=== PATIENT | male | born 1955 | race Caucasian/White ===

== ENCOUNTER 2018-04-06 18:05 | Emergency (ER) | payer OTHER ==
[~2018-04-06] VITALS: Ht 162.6 cm; Wt 59.4 kg
[2018-04-06 18:11] VITALS: Ht 162.6 cm; Wt 59.4 kg
[2018-04-06 20:40] LABS: CALCIUM 8.7 mg/dL (8.5-10.1); CARBON DIOXIDE 30.9 mmol/L (21-32); CHLORIDE SERUM 104 mmol/L (98-107); CREATININE SERUM 0.7 mg/dL (0.7-1.3); GFR1 > 60 mL/min; GLUCOSE SERUM 96 mg/dL (74-106); POTASSIUM SERUM 3.2 mmol/L (3.5-5.1); SODIUM SERUM 141 mmol/L (136-145)
[2018-04-06 20:45] LABS: ALKALINE PHOSPHATASE 98 U/L (46-116); ALT/SGPT 44 U/L (16-63); AST/SGOT 30 U/L (15-37); BILIRUBIN TOTAL 0.4 mg/dL (0.20-1.00); TOTAL PROTEIN, SERUM 8.1 g/dL (6.4-8.2)
[2018-04-06 20:46] LABS: ALBUMIN 3.3 g/dL (3.4-5.0)
[2018-04-06 21:12] LABS: BASOPHIL % 0.1 % (0-2); PLATELET COUNT 265 x10^3mcL (130-400)
[2018-04-06 21:26] VITALS: BP 144/81
== END 2018-04-06 22:12 | disposition home or self-care (01) ==
LOC: ED 18:05
PROVIDERS: Emergency Medicine
DX: R07.89 Other chest pain (principal); R11.0 Nausea; R06.02 Shortness of breath; Z85.01 Personal history of malignant neoplasm of esophagus; Z90.49 Acquired absence of other specified parts of digestive tract; Z90.89 Acquired absence of other organs; Z98.890 Other specified postprocedural states
CPT/HCPCS: 83880; 85378; J2270; J7613; J7644; Q0092

== ENCOUNTER 2018-04-10 18:53 | Emergency (ER) | payer OTHER ==
[~2018-04-10] VITALS: Ht 162.6 cm; Wt 60.3 kg
[2018-04-10 19:01] VITALS: Ht 162.6 cm; Wt 60.3 kg
[2018-04-10 19:43] LABS: BASOPHIL % 0.2 % (0-2); PLATELET COUNT 317 x10^3mcL (130-400)
[2018-04-10 19:59] LABS: CALCIUM 9.4 mg/dL (8.5-10.1); CHLORIDE SERUM 102 mmol/L (98-107); CREATININE SERUM 0.8 mg/dL (0.7-1.3); GFR1 > 60 mL/min; GLUCOSE SERUM 154 mg/dL (74-106); POTASSIUM SERUM 3.2 mmol/L (3.5-5.1); SODIUM SERUM 140 mmol/L (136-145)
[2018-04-10 20:04] LABS: ALBUMIN 3.8 g/dL (3.4-5.0); ALKALINE PHOSPHATASE 108 U/L (46-116); ALT/SGPT 51 U/L (16-63); AST/SGOT 31 U/L (15-37); BILIRUBIN TOTAL 0.5 mg/dL (0.20-1.00); HDL CHOLESTEROL 53 mg/dL (40-60); LIPASE 111 IU/L (73-393); MAGNESIUM 1.8 mg/dL (1.8-2.4); TRIGLYCERIDES 130 mg/dL (<150)
[2018-04-10 20:11] LABS: T3 TOTAL 1.12 ng/mL
[2018-04-10 20:13] LABS: CHOLESTEROL 102 mg/dL (<200); CHOLESTEROL/HDL RATIO 1.9; TOTAL PROTEIN, SERUM 8.9 g/dL (6.4-8.2)
[2018-04-10 20:39] LABS: FREE T4 1.1 ng/dL (0.76-1.46); T4(THYROXINE) 8.9 ug/dL (4.7-13.3)
[2018-04-10 23:42] LABS: microscopic required? NO
[2018-04-10 23:49] LABS: UA SPECIFIC GRAVITY >=1.030 (1.005-1.035); urine erythrocyte NEGATIVE (NEGATIVE)
[2018-04-11 00:39] VITALS: BP 152/85
== END 2018-04-11 00:39 | disposition home or self-care (01) ==
LOC: ED 18:53
PROVIDERS: Specialist
DX: E87.6 Hypokalemia (principal); I10 Essential (primary) hypertension; E11.9 Type 2 diabetes mellitus without complications; E78.00 Pure hypercholesterolemia, unspecified; F41.9 Anxiety disorder, unspecified; Z85.01 Personal history of malignant neoplasm of esophagus; Z98.890 Other specified postprocedural states
CPT/HCPCS: 83880; 84439; J3480; Q0092

== ENCOUNTER 2018-08-10 21:16 | Inpatient (IN) | payer OTHER ==
[~2018-08-10] VITALS: Ht 162.6 cm; Wt 60.5 kg
[2018-08-10 21:19] VITALS: Ht 162.6 cm; Wt 60.5 kg
--- NOTE | 2018-08-10 21:50 | NUR ---
PT PRESENTS TO ER TODAY WITH C/O OF CP THAT STARTED TODAY. PT STATES THAT CP IS RIGHT OVER HIS HEART AND FEELS SHARP. PT ALSO REPORTING DIZZINESS AND SOB. PTS LUNG SOUNDS ARE CLEAR BILATERALLY ON AUSCULTATION OF ALL LOBES. PT REPORTS TAKING NITRO APPROX 30MINS BUSINESS PROCESS ANALYST WITH NO RELIEF OF SYMPTOMS. PT DENIES PAIN RADIATING OR ANYTHING MAKING IT BETTER OR WORSE. PT PLACE ON FULL RAIL SIGNAL WORKER. PT IS A/O X4. RESP ARE EQUAL AND UNLABORED. NO ACUTE DISTRESS NOTED.
--- NOTE | 2018-08-10 22:36 | NUR ---
3 ATTEMPTS BY MYSELF TO START IV AND 2 ATTEMPTS BY CRISTOFER CHACON TO START IV WITHOUT SUCCESS.
[2018-08-10 22:46] LABS: BASOPHIL % 0.1 % (0-2); PLATELET COUNT 248 x10^3mcL (130-400)
[2018-08-10] MEDS ORDERED: TAMSULOSIN HYD0.4 M1 PO ×2 (22:55→22:57)
[2018-08-10] MEDS ORDERED: LOR PO (22:55)
[2018-08-10] MEDS ORDERED: AMITRIPTYLINE H25 MG PO (22:56)
[2018-08-10] MEDS ORDERED: ENALAPRIL MALEA20 MG PO (22:57)
[2018-08-10 22:58] LABS: RED CELL DISTRIBUTION WIDTH 14.6 % (11.5-14.5)
[2018-08-10] MEDS ORDERED: SIMVASTATIN40 M1 PO (22:58)
[2018-08-10] MEDS ORDERED: GAS RELIEF 8080 MG PO (22:58)
[2018-08-10] MEDS ORDERED: POTASSIUM CHLO10 MEQ PO (22:58)
[2018-08-10] MEDS ORDERED: ASPIR 8181 MG PO (22:59)
[2018-08-10] MEDS ORDERED: CLARITIN10 MG PO (22:59)
[2018-08-10] MEDS ORDERED: METOCLOPRAMIDE10 M4 PO (22:59)
[2018-08-10] MEDS ORDERED: WELLBUTRIN XL300 M1 PO (23:00)
[2018-08-10] MEDS ORDERED: METFORMIN HYDR500 M1 PO (23:00)
[2018-08-10 23:16] LABS: ALBUMIN 3.9 g/dL (3.4-5.0); ALKALINE PHOSPHATASE 114 U/L (46-116); ALT/SGPT 46 U/L (16-63); AST/SGOT 37 U/L (15-37); BILIRUBIN TOTAL 0.4 mg/dL (0.20-1.00); CALCIUM 9.5 mg/dL (8.5-10.1); CARBON DIOXIDE 28.9 mmol/L (21-32); CHLORIDE SERUM 103 mmol/L (98-107); CREATININE SERUM 0.9 mg/dL (0.7-1.3); GFR1 > 60 mL/min; GLUCOSE SERUM 149 mg/dL (74-106); SODIUM SERUM 141 mmol/L (136-145)
[2018-08-10 23:17] LABS: TOTAL PROTEIN, SERUM 8.8 g/dL (6.4-8.2)
--- NOTE | 2018-08-10 23:30 | NUR ---
3 ATTEMPT BY MARQUIS CLEVELAND TO GET IV ACCESS WITHOUT SUCCESS.
--- NOTE | 2018-08-10 23:34 | NUR ---
RESIDENT NESSA AND MD MARIE AT BEDSIDE TO ATTEMPT EJ START. PT TOLERATING PROCEDURE WELL. PTS VITALS WNL. NO ACUTE DISTRESS NOTED.
[2018-08-11] VITALS (7 sets, daily range): BP systolic 137–164; BP diastolic 84–93
--- NOTE | 2018-08-11 00:41 | NUR ---
REPORT GIVEN TO JUANCARLOS C[place]AND TO ASSUME CARE OF PT.
--- NOTE | 2018-08-11 00:51 | NUR ---
RECEIVED PT FROM ED. PT AOX4. DENIES WOMACK/DIZZINESS. SPEECH CLEAR, ANSWERS QUESTIONS APPROP. TELE #13, NSR, HR 99. DENIES CP/PRESSURE. PULSES PALPABLE, NO EDEMA NOTED. LUNG SOUNDS DIMINISHED, ON RA. SOB UPON EXERTION. BOWEL SOUNDS ACTIVE. VOIDS FREELY. GEN WEAKNESS. AMBULATORY. SKIN INTACT. IV TO R. EJ, INTACT AND PATENT. BED IN LOWEST POSITION. CALL LIGHT WITHIN REACH. WILL CONTINUE TO MONITOR.
[2018-08-11 01:16] LABS: PHOSPHOROUS 4.1 mg/dL (2.5-4.9)
--- NOTE | 2018-08-11 02:34 | NUR ---
TELE BOX CHANGED TO TELE #22, READING NSR, HR 89.
--- NOTE | 2018-08-11 03:45 | NUR ---
[place] PROVIDED TO PT PER HIS REQUEST.
[2018-08-11 06:09] LABS: microscopic required? NO
--- NOTE | 2018-08-11 07:30 | NUR ---
RECEIVED PATIENT RESTING IN BED. PATIENT DENIES CHEST PAIN. TELE MONITOR IN PLACE. DENIES SOB, LUNG SOUNDS CTA. IV TO RIGHT EJ CDI, NO REDNESS, SWELLING OR PAIN NOTED. INSTRUCTED PATIENT TO CALL FOR ASSISTANCE IF ANY CHEST PAIN, DIZZINESS OR HEADACHE OCCURS. CALL LIGHT WITHIN REACH, BED IN LOW POSITION, SIDE RAILS X2 FOR SAFETY PRECAUTION . WILL CONTINUE TO MONITOR FOR CHANGES.
[2018-08-11 07:31] LABS: BASOPHIL % 0.3 % (0-2); PLATELET COUNT 210 x10^3mcL (130-400)
[2018-08-11 07:51] LABS: UA SPECIFIC GRAVITY >=1.030 (1.005-1.035); urine erythrocyte NEGATIVE (NEGATIVE)
[2018-08-11 08:26] LABS: CALCIUM 8.9 mg/dL (8.5-10.1); CARBON DIOXIDE 22.5 mmol/L (21-32); CHLORIDE SERUM 104 mmol/L (98-107); CREATININE SERUM 0.7 mg/dL (0.7-1.3); GFR1 > 60 mL/min; GLUCOSE SERUM 164 mg/dL (74-106); HDL CHOLESTEROL 50 mg/dL (40-60); POTASSIUM SERUM 3.3 mmol/L (3.5-5.1); SODIUM SERUM 142 mmol/L (136-145); TRIGLYCERIDES 144 mg/dL (<150)
[2018-08-11 09:09] LABS: CHOLESTEROL 105 mg/dL (<200); CHOLESTEROL/HDL RATIO 2.1
--- NOTE | 2018-08-11 09:55 | NUR ---
DR DAWN AWARE PATIENT K IS 3.3, PREVIOUS K WAS 4.0. DR BLOCK AWARE PATIENT C/O INTERMITENT CHEST PAIN. DR. DAWN WILL ORDER EKG AND ORDER A REPLACEMENT FOR POTASSIUM. WILL CARRY OUT ORDERS AND CONTINUE TO MONITOR PATIENT.
[2018-08-11 09:56] LABS: AMPHETAMINE QUAL UR NONE DETECTED (See below)
--- NOTE | 2018-08-11 13:00 | NUR ---
PATIENT IS SITTING UP AT BEDSIDE EATING, PATIENT DENIES CHEST PAIN AT THIS. NO SOB NOTED, PATIENT ON ROOM AIR. CALL LIGHT WITHIN REACH, BED IN LOW POSITION. WILL CONTINUE TO MONITOR.
--- NOTE | 2018-08-11 18:22 | NUR ---
PATIENT WAS D/C HOME. PATIENT WAS TAKEN DOWN VIA WHEELCHAIR, AND SULPHATE TESTER AT SIDE FOR SAFETY PRECAUTION. NO ACUTE CHANGES THROUGH OUT SHIFT, PATIENT IS STABLE AT THIS TIME. PATIENT RECEIVED COPY OF D/C INSTRUCTIONS. PATIENT UNDERSTANDS AND AGREES WITH DISCHARGE PLAN AND INSTRUCTIONS INCLUDING FOLLOW MEDICATIONS. PATIENT TOOK ALL PERSONAL BELONGING HOME. PATIENT IV TO RIGHT EF REMOVED CATH INTACT, TELE MONITOR AND ARMBANDS REMOVED. ALL QUESTIONS AND CONCERNS ADDRESSED.
== END 2018-08-11 18:22 | disposition home or self-care (01) | DRG 243 ==
LOC: ED 21:16 → DU 08-11 00:08
PROVIDERS: Emergency Medicine; ADMIT Internal Medicine
DX: K21.9 Gastro-esophageal reflux disease without esophagitis (principal); E11.9 Type 2 diabetes mellitus without complications; E78.5 Hyperlipidemia, unspecified; I10 Essential (primary) hypertension; F41.9 Anxiety disorder, unspecified; E78.00 Pure hypercholesterolemia, unspecified; F32.9 Major depressive disorder, single episode, unspecified; N40.0 Benign prostatic hyperplasia without lower urinary tract symptoms; Z87.891 Personal history of nicotine dependence; Z79.84 Long term (current) use of oral hypoglycemic drugs; Z85.01 Personal history of malignant neoplasm of esophagus; Z83.3 Family history of diabetes mellitus; Z82.49 Family history of ischemic heart disease and other diseases of the circulatory system; Z82.3 Family history of stroke
CPT/HCPCS: 82962; 83880; J8597; Q0092

== ENCOUNTER 2018-12-22 13:15 | Emergency (ER) | payer OTHER ==
[~2018-12-22] VITALS: Ht 162.6 cm; Wt 56.7 kg
[~2018-12-22 13:15] MED LIST: AMITRIPTYLINE H25 MG PO; ASPIR 8181 MG PO; CLARITIN10 MG PO; ENALAPRIL MALEA20 MG PO; GAS RELIEF 8080 MG PO; LOR PO; METFORMIN HYDR500 M1 PO; METOCLOPRAMIDE10 M4 PO; POTASSIUM CHLO10 MEQ PO; SIMVASTATIN40 M1 PO; TAMSULOSIN HYD0.4 M1 PO; WELLBUTRIN XL300 M1 PO
[2018-12-22 13:31] VITALS: Ht 162.6 cm; Wt 56.7 kg
[2018-12-22 16:36] LABS: CALCIUM 9.3 mg/dL (8.5-10.1); CARBON DIOXIDE 29.7 mmol/L (21-32); CHLORIDE SERUM 102 mmol/L (98-107); CREATININE SERUM 0.8 mg/dL (0.7-1.3); GFR1 > 60 mL/min; GLUCOSE SERUM 119 mg/dL (74-106); POTASSIUM SERUM 3.4 mmol/L (3.5-5.1); SODIUM SERUM 136 mmol/L (136-145)
[2018-12-22 16:41] LABS: ALBUMIN 3.4 g/dL (3.4-5.0); ALKALINE PHOSPHATASE 104 U/L (46-116); ALT/SGPT 29 U/L (16-63); AST/SGOT 13 U/L (15-37); BILIRUBIN TOTAL 0.56 mg/dL (0.20-1.00); TOTAL PROTEIN, SERUM 8.1 g/dL (6.4-8.2)
[2018-12-22 17:13] LABS: PLATELET COUNT 250 x10^3mcL (130-400)
[2018-12-22 17:15] LABS: BASOPHIL % 0 % (0-2)
[2018-12-22 17:57] VITALS: BP 139/75
== END 2018-12-22 18:10 | disposition home or self-care (01) ==
LOC: ED 13:15
PROVIDERS: Emergency Medicine
DX: J40 Bronchitis, not specified as acute or chronic (principal); J04.0 Acute laryngitis; I10 Essential (primary) hypertension; E11.9 Type 2 diabetes mellitus without complications; E78.00 Pure hypercholesterolemia, unspecified; F41.9 Anxiety disorder, unspecified; Z98.890 Other specified postprocedural states; Z85.01 Personal history of malignant neoplasm of esophagus
CPT/HCPCS: J7030; Q0092

== ENCOUNTER 2018-12-26 07:32 | Emergency (ER) | payer OTHER ==
[~2018-12-26] VITALS: Ht 162.6 cm; Wt 55.3 kg
[2018-12-26 07:40] VITALS: Ht 162.6 cm; Wt 55.3 kg
[2018-12-26 09:15] LABS: BASOPHIL % 0.2 % (0-2); PLATELET COUNT 293 x10^3mcL (130-400); RED CELL DISTRIBUTION WIDTH 14.3 % (11.5-14.5)
[2018-12-26 09:44] LABS: microscopic required? NO
[2018-12-26 10:07] LABS: CALCIUM 9.7 mg/dL (8.5-10.1); CARBON DIOXIDE 28.8 mmol/L (21-32); CHLORIDE SERUM 102 mmol/L (98-107); CREATININE SERUM 0.7 mg/dL (0.7-1.3); GFR1 > 60 mL/min; GLUCOSE SERUM 144 mg/dL (74-106); POTASSIUM SERUM 3.1 mmol/L (3.5-5.1); SODIUM SERUM 143 mmol/L (136-145)
[2018-12-26 10:11] LABS: ALBUMIN 3.6 g/dL (3.4-5.0); ALKALINE PHOSPHATASE 110 U/L (46-116); ALT/SGPT 43 U/L (16-63); AST/SGOT 31 U/L (15-37); BILIRUBIN TOTAL 0.5 mg/dL (0.20-1.00)
[2018-12-26 10:12] LABS: TOTAL PROTEIN, SERUM 8.4 g/dL (6.4-8.2)
[2018-12-26 10:14] LABS: UA SPECIFIC GRAVITY 1.025 (1.005-1.035); urine erythrocyte NEGATIVE (NEGATIVE)
[2018-12-26 15:42] LABS: microscopic required? YES; urine erythrocyte 2+ (NEGATIVE)
[2018-12-26 15:54] VITALS: BP 157/90
== END 2018-12-26 15:54 | disposition home or self-care (01) ==
LOC: ED 07:32
PROVIDERS: Emergency Medicine
DX: R42 Dizziness and giddiness (principal); T43.3X5A Adverse effect of phenothiazine antipsychotics and neuroleptics, initial encounter; E87.6 Hypokalemia; E83.42 Hypomagnesemia; R33.9 Retention of urine, unspecified; I10 Essential (primary) hypertension; E11.9 Type 2 diabetes mellitus without complications; E78.00 Pure hypercholesterolemia, unspecified; F41.9 Anxiety disorder, unspecified; Z85.01 Personal history of malignant neoplasm of esophagus; Y92.89 Other specified places as the place of occurrence of the external cause
CPT/HCPCS: 83880; J3475; J7030; Q0092

== ENCOUNTER 2018-12-27 17:42 | Emergency (ER) | payer OTHER ==
[~2018-12-27] VITALS: Ht 162.6 cm; Wt 55.0 kg
[2018-12-27 17:44] VITALS: BP 153/93; Ht 162.6 cm; Wt 55.0 kg
== END 2018-12-27 18:37 | disposition home or self-care (01) ==
LOC: ED 17:42
DX: Z46.6 Encounter for fitting and adjustment of urinary device (principal); I10 Essential (primary) hypertension; E11.9 Type 2 diabetes mellitus without complications; E78.00 Pure hypercholesterolemia, unspecified; F41.9 Anxiety disorder, unspecified; Z88.8 Allergy status to other drugs, medicaments and biological substances

== ENCOUNTER 2019-04-09 21:28 | Emergency (ER) | payer OTHER ==
[~2019-04-09] VITALS: Ht 162.6 cm; Wt 59.0 kg
[2019-04-09 21:43] VITALS: Ht 162.6 cm; Wt 59.0 kg
[2019-04-09 23:34] VITALS: BP 143/88
== END 2019-04-09 23:34 | disposition home or self-care (01) ==
LOC: ED 21:28
DX: R33.9 Retention of urine, unspecified (principal); R10.30 Lower abdominal pain, unspecified; I10 Essential (primary) hypertension; E11.9 Type 2 diabetes mellitus without complications; E78.00 Pure hypercholesterolemia, unspecified; F41.9 Anxiety disorder, unspecified; Z85.01 Personal history of malignant neoplasm of esophagus; Z88.8 Allergy status to other drugs, medicaments and biological substances

== ENCOUNTER 2019-04-11 16:22 | Emergency (ER) | payer OTHER ==
[~2019-04-11] VITALS: Ht 165.1 cm; Wt 58.1 kg
[2019-04-11 16:49] VITALS: Ht 165.1 cm; Wt 58.1 kg
[2019-04-11 18:07] LABS: BASOPHIL % 0.2 % (0-2); PLATELET COUNT 227 x10^3mcL (130-400)
[2019-04-11 18:10] LABS: RED CELL DISTRIBUTION WIDTH 14.7 % (11.5-14.5)
[2019-04-11 18:14] LABS: CALCIUM 8.2 mg/dL (8.5-10.1); CARBON DIOXIDE 28.7 mmol/L (21-32); CHLORIDE SERUM 103 mmol/L (98-107); CREATININE SERUM 0.8 mg/dL (0.7-1.3); GFR1 > 60 mL/min; GLUCOSE SERUM 139 mg/dL (74-106); POTASSIUM SERUM 3.5 mmol/L (3.5-5.1); SODIUM SERUM 140 mmol/L (136-145)
[2019-04-11 18:27] LABS: ALKALINE PHOSPHATASE 108 U/L (46-116); ALT/SGPT 21 U/L (16-63); AST/SGOT 25 U/L (15-37); BILIRUBIN TOTAL 0.3 mg/dL (0.20-1.00); LIPASE 84 IU/L (73-393); T4(THYROXINE) 9.6 ug/dL (4.7-13.3); TOTAL PROTEIN, SERUM 7.6 g/dL (6.4-8.2)
[2019-04-11 18:32] LABS: ALBUMIN 3.2 g/dL (3.4-5.0); CHOLESTEROL 127 mg/dL (<200)
[2019-04-11 19:18] LABS: UA SPECIFIC GRAVITY >=1.030 (1.005-1.035); microscopic required? YES; urine erythrocyte 3+ (NEGATIVE)
[2019-04-11 20:11] VITALS: BP 134/75
== END 2019-04-11 20:11 | disposition home or self-care (01) ==
LOC: ED 16:22
PROVIDERS: Emergency Medicine
DX: N39.0 Urinary tract infection, site not specified (principal); I10 Essential (primary) hypertension; E11.9 Type 2 diabetes mellitus without complications; E78.00 Pure hypercholesterolemia, unspecified; F41.9 Anxiety disorder, unspecified; Z88.8 Allergy status to other drugs, medicaments and biological substances
CPT/HCPCS: 82962; J1956; J7030

== ENCOUNTER 2019-05-03 19:20 | Inpatient (IN) | payer OTHER ==
[~2019-05-03] VITALS: Ht 162.6 cm; Wt 58.5 kg
--- NOTE | 2019-05-03 19:30 | NUR ---
PT BIB AMBULANCE FOR GENERALIZED WEAKNESS AND "8 FALLS" X 2 DAYS. PT DENIED ANY HEAD INJURY OR LOC. NO NEURO DEFICITS NOTED. PT A&0X4, SPEAKING FULL CLEAR SENTENCES. PT BREATHING EVEN AND UNLABORED. PT SKIN INTACT. PT STATES "CHILLS" BUT DENIES FEVER AT HOME. PT STATES GENERALIZED ABDOMINAL PAIN AND BILATERAL RIB PAIN S/P "FALLS". CM AND [address] AWAITING MSE. WILL CONTINUE TO MONITOR.
--- NOTE | 2019-05-03 19:42 | NUR ---
PT AT BEDSIDE.
[2019-05-03 20:05] LABS: BASOPHIL % 0 % (0-2); PLATELET COUNT 269 x10^3mcL (130-400); RED CELL DISTRIBUTION WIDTH 14.1 % (11.5-14.5)
[2019-05-03 20:10] LABS: CALCIUM 8.5 mg/dL (8.5-10.1); CARBON DIOXIDE 30.1 mmol/L (21-32); CHLORIDE SERUM 99 mmol/L (98-107); CREATININE SERUM 0.7 mg/dL (0.7-1.3); GFR1 > 60 mL/min; GLUCOSE SERUM 101 mg/dL (74-106); POTASSIUM SERUM 3.2 mmol/L (3.5-5.1); SODIUM SERUM 139 mmol/L (136-145)
[2019-05-03 20:20] LABS: ALBUMIN 2.9 g/dL (3.4-5.0); ALKALINE PHOSPHATASE 117 U/L (46-116); ALT/SGPT 24 U/L (16-63); AST/SGOT 25 U/L (15-37); BILIRUBIN TOTAL 0.4 mg/dL (0.20-1.00); TOTAL PROTEIN, SERUM 8.3 g/dL (6.4-8.2)
[2019-05-03 20:23] LABS: FREE T4 1.31 ng/dL (0.76-1.46); FREE THYROXINE INDEX 3.1 ug/dL (1.4-4.5); T4(THYROXINE) 8.5 ug/dL (4.7-13.3)
--- NOTE | 2019-05-03 20:32 | NUR ---
MARCELO RN AT BEDSIDE FOR IV ATTEMPT
--- NOTE | 2019-05-03 20:32 | NUR ---
MULTIPLE UNSUCCESSFUL IV ATTEMPTS BY MYSELF
[2019-05-03 21:03] LABS: T3 TOTAL 0.82 ng/mL
[2019-05-03 21:13] LABS: ERYTHROCYTE SED RATE 92 mm/hr (0-20)
[2019-05-03 21:26] LABS: UA SPECIFIC GRAVITY 1.015 (1.005-1.035); microscopic required? YES; urine erythrocyte 2+ (NEGATIVE)
[2019-05-03] MEDS ORDERED: TRAZODONE100 MG PO (22:20)
[2019-05-03] MEDS ORDERED: AMITRIPTYLINE H50 MG PO (22:20)
[2019-05-03] MEDS ORDERED: LOR PO (22:20)
[2019-05-03] MEDS ORDERED: LORAZEPAM2 MG PO (22:20)
[2019-05-03] MEDS ORDERED: ENALAPRIL20 M1 PO (22:21)
[2019-05-03] MEDS ORDERED: WELLBUTRIN XL300 M1 PO (22:21)
--- NOTE | 2019-05-03 22:50 | NUR ---
URINARY CATH BAG EMPTIED, NOTED 600 ML OF CLEAR YELLOW URINE.
--- NOTE | 2019-05-03 23:17 | NUR ---
CALLED REPORT TO YOLANDA C[facility]AND FOR REPORT AT EXT [id number]
--- NOTE | 2019-05-03 23:30 | NUR ---
RECEIVED PT FROM ED VIA [facility], CAME IN DUE TO FREQUENT FALLS (ABOUT 8 TIMES FOR THE PAST 2-3 DAYS) AND STATED THAT THE ROOM WAS SPINNING. AAOX4. DENIES HEADACHE/DIZZINESS. ABLE TO FOLLOW COMMANDS. SPEECH IS CLEAR. NO ARM DRIFT NOTED. NO SOB, O2 SAT=96%,RA. DENIES CHEST PAIN/PRESSURE, SR ON THE MONITOR. DENIES ABDOMINAL DISCOMFORT. BOWEL SOUNDS ACTIVE. ABDOMEN IS SOFT. W/ ICELANDIC 18 INDWELLING CATHETER DRAINING W/ YELLOW COLORED URINE. W/ SLOW AND UNSTEADY GAIT NOTED. IV SITE PATENT AND INTACT. SIDE RAILS UPX2. CALL LIGHT ON REACH. HOB ELEVATED AT 30 DEG. BED ALARM ON. ENDORSED TO PRIMARY NURSE DINORAH FOR CONTINUITY OF CARE
--- NOTE | 2019-05-03 23:35 | NUR ---
PT TRANSFERED TO TELE AT THIS TIME BY MARCELO C[place] AND MARTHA EMT. PT A&0X4, SPEAKING FULL CLEAR SENTENCES. PT BREATHING EVEN AND UNLABORED. PT BELONGINGS SENT WITH PT. YOLANDA C[place] TO ASSUME CARE OF PT. IV FLUIDS ENDORSED TO YOLANDA C[place]. IV FLUSHES WITH NO COMPLICATIONS.
[2019-05-03 23:48] VITALS: BP 144/73
[2019-05-03 23:51] VITALS: Ht 162.6 cm; Wt 58.5 kg
--- NOTE | 2019-05-03 23:59 | NUR ---
RECEIVED PT FROM SANDEEP CLEVELAND. DR. CHAMPAGNE IN TO SEE PT AT THIS TIME. PT REQUESTING FOR ATIVAN TO HELP HIS INSOMNIA AND A SANWICH. WILL PROVIDE. ORIENTED THE PT TO ROOM AND SURROUNDINGS. BED IN LOWEST POSITION. CALL LIGHT WITHIN REACH. WILL CONTINUE TO MONITOR.
[2019-05-04 05:40] VITALS: BP 127/76
--- NOTE | 2019-05-04 06:31 | NUR ---
PT SLEPT IN INTERVALS THROUGHOUT THE NIGHT AND COMPLIED WITH NURSING CARE WITH NO ACUTE EVENTS OCCURRING DURING THE SHIFT. ROUTINE MEDICATIONS WERE GIVEN AND TOLERATED WELL. PT REQUESTED FOR ATIVAN FOR SLEEP AND PAIN MEDICATIONS. ALL NEEDS ASSESSED AND ATTENDED TO. COMFORT AND SAFETY MEASURES MAINTAINED. WILL CONTINUE TO MONITOR AND ENDORSE CARE TO DAY SHIFT NURSE.
[2019-05-04 06:33] LABS: BASOPHIL % 0.1 % (0-2); PLATELET COUNT 215 x10^3mcL (130-400); RED CELL DISTRIBUTION WIDTH 14.5 % (11.5-14.5)
[2019-05-04 06:39] LABS: CALCIUM 7.8 mg/dL (8.5-10.1); CARBON DIOXIDE 28.7 mmol/L (21-32); CHLORIDE SERUM 103 mmol/L (98-107); CREATININE SERUM 0.6 mg/dL (0.7-1.3); GFR1 > 60 mL/min; GLUCOSE SERUM 95 mg/dL (74-106); MAGNESIUM 1.7 mg/dL (1.8-2.4); PHOSPHOROUS 3.1 mg/dL (2.5-4.9); POTASSIUM SERUM 3.8 mmol/L (3.5-5.1); SODIUM SERUM 139 mmol/L (136-145)
--- NOTE | 2019-05-04 07:25 | NUR ---
AAO X4.C/O ABD'L DISCOMFORT AT 9/10 PAIN SCALE.LUNGS CLEAR.ON SR ON THE MONITOR.IVF NS GOING AT 100 ML/HR INFUSING WELL.CALL LIGHT WITHIN REACH.INSTRUCTED TO CALL FOR ANY PAIN/DISCOMFORT.WILL CONTINUE TO MONITOR PT.
[2019-05-04 08:31] LABS: AMPHETAMINE QUAL UR NONE DETECTED (See below)
[2019-05-04 08:55] VITALS: BP 126/62
--- NOTE | 2019-05-04 11:55 | NUR ---
INFORMED PT'S MG=1.7
[2019-05-04 12:41] VITALS: BP 122/72
[2019-05-04 16:58] VITALS: BP 117/70
--- NOTE | 2019-05-04 18:48 | NUR ---
GAVE NORCO 1 TAB FOR C/O PAIN ON SUPRAPUBIC AT 9/10 PAIN SCALE.WILL CONTINUE TO MONITOR.
--- NOTE | 2019-05-04 18:54 | NUR ---
NO SIGNIFICANT CHANGE NOTED.WILL ENDORSE TO NEXT SHIFT.
--- NOTE | 2019-05-04 20:00 | NUR ---
PT A/A/O X4. DENIES DIZZINESS AND HEADACHE. BREATH SOUNDS CLEAR. BREATHING EVEN AND UNLABORED ON ROOM AIR. DENIES CHEST PAIN AND PRESSURE. BOWEL SOUNDS ACTIVE. NO C/O N/V AND ABDOMINAL PAIN. JOHNSON CATH INTACT AND DRAINING TO GRAVITY WITH YELLOW URINE. IV INTACT ON THE RIGHT WRIST INFUSING WITH NS AT 100 ML/HR. MADE PT COMFORTABLE. PLACED CALL LIGHT WITH IN REACH. WILL CONTINUE TO MONITOR.
--- NOTE | 2019-05-04 20:30 | NUR ---
PT C/O PAIN. STATING NORCO NOT WORKING. GAVE PT TORADOL IVP. PT TOLERATED IT WELL. WILL CONTINUE TO MONITOR.
[2019-05-04 21:05] VITALS: BP 148/72
--- NOTE | 2019-05-05 01:06 | NUR ---
PT RESTING WITH EYES CLOSED. NO DISTRESS AND DISCOMFORT NOTED. WILL CONTINUE TO MONITOR.
--- NOTE | 2019-05-05 02:09 | NUR ---
PT C/O PAIN. GAVE PT TORADOL IVP. PT TOLERATED IT WELL. WILL CONTINUE TO MONITOR
[2019-05-05 05:37] VITALS: BP 131/66
--- NOTE | 2019-05-05 06:21 | NUR ---
PT RESTING WITH EYES CLOSED. EASILY AROUSABLE WITH VERBAL STIMULI. DENIES PAIN THUS FAR. IV INTACT AND INFUSING ORDERED. MADE PT COMFORTABLE. WILL ENDORSE TO THE DAY NURSE ACCORDINGLY.
[2019-05-05 07:27] LABS: BASOPHIL % 0.2 % (0-2); PLATELET COUNT 224 x10^3mcL (130-400); RED CELL DISTRIBUTION WIDTH 14.3 % (11.5-14.5)
--- NOTE | 2019-05-05 07:30 | NUR ---
AO X 4. PT REPORTS PAIN OF 7/10 ON PAIN SCALE. DESCRIBES PAIN SPASM THAT IS INTERMITTENT. WILL MEDICATE NEEDED. ON SINUS RHYTHM ON THE MONITOR, TELE #29. HR = 74. ON ROOM AIR. LUNGS ARE CLEAR. IVF NS GOING AT 100 ML/HR IN R WRIST. BOWEL SOUNDS ACTIVE. PULSES STRONG BILATERALLY IN UE AND LE. NO EDEMA NOTED. JOHNSON DRAINING TO GRAVITY. URINE YELLOW AND CLEAR. CALL LIGHT WITHIN REACH. INSTRUCTED TO CALL FOR ANY PAIN/DISCOMFORT OR ANY ASSISTANCE.
[2019-05-05 08:02] LABS: CALCIUM 7.7 mg/dL (8.5-10.1); CARBON DIOXIDE 27.3 mmol/L (21-32); CHLORIDE SERUM 105 mmol/L (98-107); CREATININE SERUM 0.6 mg/dL (0.7-1.3); GFR1 > 60 mL/min; GLUCOSE SERUM 76 mg/dL (74-106); MAGNESIUM 1.8 mg/dL (1.8-2.4); PHOSPHOROUS 3.9 mg/dL (2.5-4.9); POTASSIUM SERUM 3.5 mmol/L (3.5-5.1); SODIUM SERUM 141 mmol/L (136-145)
[2019-05-05 08:27] VITALS: BP 142/80
--- NOTE | 2019-05-05 11:42 | NUR ---
NURSING CO-SIGN THE DOCUMENTATION ENTERED BY THE IP HAS BEEN REVIEWED. REVIEWED/CO-SIGNED BY: Danielle Medina DOCUMENTATION DONE BY:SN ALEXANDER
[2019-05-05 11:58] VITALS: BP 138/77
--- NOTE | 2019-05-05 13:52 | NUR ---
PT AND CONCERNED THAT PT IS TO HAVE SURGERY TOMORROW.CALLED ENRICO MESSER.INFORMED HER ABOUT PT'S CONCERN. PER AYDE PT IS NOT TO BE D/C'D TODAY DUE TO PT HAS SEPSIS AND UTI.THE PLAN IS TO D/C HIM TOMORROW.INFORMED PT OF WHAT ENRICO MESSER SAID.PT COOPERATIVE WITH THE PLAN OF CARE.WILL CANCEL WILL CALL THE CLINIC TO CANCEL THE SURGERY FOR TOMORROW.
--- NOTE | 2019-05-05 16:25 | NUR ---
PT STATED HAD PAIN IN SUPRAPUBIC AREA WITH 8/10 PAIN ON PAIN SCALE. WAS MEDICATED WITH TORADOL IVP ORDERED PRN. WILL CONTINUE TO MONITOR.
[2019-05-05 16:35] VITALS: BP 139/83
--- NOTE | 2019-05-05 17:25 | NUR ---
RECHECKED PAIN LEVEL.CLAIMS PAIN WENT DOWN TO 3/10 PAIN SCALE.
--- NOTE | 2019-05-05 18:30 | NUR ---
NO SIGNIFICANT CHANGE NOTED.WILL ENDORSE TO NEXT SHIFT.
--- NOTE | 2019-05-05 20:00 | NUR ---
PT A/A/O X4. DENIES DIZZINESS AND HEADACHE. PT STATED "I FEEL LIKE MY EQUILIBRIUM IS GETTING BETTER.". BREATH SOUNDS CLEAR. BREATHING EVEN AND UNLABORED ON ROOM AIR. DENIES CHEST PAIN AND PRESSURE. BOWEL SOUNDS ACTIVE. NO C/O N/V AND ABD PAIN. JOHNSON CATH IN PLACE AND DRAINING TO GRAVITY WITH YELLOW URINE. IV INTACT ON THE RIGHT WRIST INFUSING WITH NS AT 100 ML/HR. MADE PT COMFORTABLE. PLACED CALL LIGHT WITH IN REACH. WILL CONTINUE TO MONITOR.
[2019-05-05 21:23] VITALS: BP 163/86
--- NOTE | 2019-05-05 23:54 | NUR ---
PT C/O 9 ABDOMINAL PAIN. GAVE PT MORPHINE IVP. PT TOLERATED IT WELL. WILL CONTINUE TO MONITOR.
--- NOTE | 2019-05-06 02:04 | NUR ---
PT C/O ANXIETY. GAVE PT ATIVAN PO. PT TOLERATED IT WELL. WILL CONTINUE TO MONITOR.
[2019-05-06 05:28] VITALS: BP 157/85
[2019-05-06 06:38] LABS: BASOPHIL % 0.3 % (0-2); PLATELET COUNT 247 x10^3mcL (130-400); RED CELL DISTRIBUTION WIDTH 14.1 % (11.5-14.5)
--- NOTE | 2019-05-06 06:59 | NUR ---
PT QUIET AND RESTING. DENIES PAIN THUS FAR. PT STATED "I FEEL MORE STABLE AND BETTER NOW.". JOHNSON CATH IN PLACE. MADE PT COMFORTABLE.WILL ENDORE TO THE AM NURSE ACCORDINGLY.
[2019-05-06 07:03] LABS: CALCIUM 8.3 mg/dL (8.5-10.1); CARBON DIOXIDE 27.2 mmol/L (21-32); CHLORIDE SERUM 102 mmol/L (98-107); CREATININE SERUM 0.6 mg/dL (0.7-1.3); GFR1 > 60 mL/min; GLUCOSE SERUM 79 mg/dL (74-106); POTASSIUM SERUM 3.5 mmol/L (3.5-5.1); SODIUM SERUM 136 mmol/L (136-145)
--- NOTE | 2019-05-06 07:30 | NUR ---
PT ENDORSE TO ME THIS MORNING, LAYING IN BED RESTING. AA/O X4, BREATHING EVEN AND UNLABORED ON RA, NO ACUTE RESP DISTRESS OR SOB NOTED. TELE 29 ST NOTED, HR 103, DENIES ANY CP OR PRESSURE. LAST BM 05/05 PER PT. JOHNSON INTACT AND PATENT/ YELLOW URINE NOTED. AMB WITH ASSIST / KNOWS TO CALL FOR ASSIST. IV TO THE R WRIST INTACT AND PATENT/ INFUSING AT 100ML/HR, NO REDNESS OR SWELLING NOTED. WILL CONTINUE TO MONITOR.
[2019-05-06 08:41] VITALS: BP 139/80
--- NOTE | 2019-05-06 10:23 | NUR ---
PT C/O ABD PAIN 01/10, MEDICATED PER EMAR.
[2019-05-06 11:58] VITALS: BP 144/87
--- NOTE | 2019-05-06 13:21 | NUR ---
Initial Nutrition Assessment: 251T/B EDE SIDHU IA HR Dx: UTI, sepsis PMHx: BPH, HLD, Anxiety, depression and Esophageal Ca s/p resection and radiation therapy, glaucoma, hypokalemia PSHx: BPH, HLD, Anxiety, depression and Esophageal Ca s/p resection and radiation therapy Labs: BUN 6.0L, CREAT 0.6L, CA 8.3L, A1C 6.8H, HGB 10.9L Meds: Antivert, Ativan, Colace, D 50%, Flomax, Humulin, Levaquin, morphine, zofran Diet: 2g Na with ONS Ensure PO intake since admission: (05/06) breakfast 100%, (05/05) dinner 60%, breakfast, lunch 80% Ht: 162.56 cm (64") Wt: 58.5 kg (128#) BMI: 22.1 kg/m2 Bed scale: 128# IBW: 130# (59 kg) %IBW: 98 UBW: 125-130# Age: 64/M Food Allergies: NKFA Skin: intact Brad: 20 Edema: none GI: Last BM: 05/04 Per H&P, Pt is a 64 YOM with PMH of BPH, HLD, Anxiety, depression and Esophageal Ca s/p resection and radiation therapy, in remission, came to the ED with c/o dizziness and unsteadiness at home with multiple falls. RD Note (05/06): Patient was alert and oriented and said that he ate all of his breakfast this morning. He said that his appetite is coming back. Patient said he lost ~ 110# since August 2017 after his gastric bypass 2/2 esophageal cancer but his weight has been stable since last 6-7 months. Patient is drinking ONS Ensure QD. FNS received consult for 'h/o esophageal cancer' on 05/04. Problem with: N/V/D/C: none at this time Problems with: Chewing: Swallowing: none Current appetite: good Recent wt change: none since last 6-7 months %wt change: n/a Vitamin/Supplement use: centrum silver Special diet at home: Regular Physical activity: sedentary Nutrition education given: PO was encouraged Food-drug interactions: none Education given: n/a Estimated Nutritional Needs Based on current body weight (58.5 kg) Energy: 1988-4826 kcal/day (30-35 kcal/kg for Hx cancer, sepsis) Protein: 70-82 g/day (1.2-1.4 g/kg for sepsis) Fluid: 0594-4124 mL/day (1 mL/kcal) Nutrition Diagnosis: 1. Increased nutrient needs related to increased metabolic demands as evidenced by sepsis, hx of cancer. Intervention 1. Recommend continuing 2g Na diet with ONS Ensure QD. Monitor/Evaluate Goal: PO intake at least 75% of estimated needs Monitor: PO intake, Labs, GI function F/U in 7 days as low risk 05/13
--- NOTE | 2019-05-06 13:21 | NUR ---
1. Recommend continuing 2g Na diet with ONS Ensure QD.
[2019-05-06 16:55] VITALS: BP 157/92
--- NOTE | 2019-05-06 17:12 | NUR ---
PT C/O ABD PAIN 01/10, MEDICATED PER EMAR. JOHNSON OUTPUT 1200 YELLOW URINE NOTED.
--- NOTE | 2019-05-06 18:07 | NUR ---
PT C/O N/V, MEDICATED PER EMAR. WILL CONTINUE TO MONITOR.
--- NOTE | 2019-05-06 18:09 | NUR ---
NO ACUTE CHANGES AT THIS TIME, SITTING UP IN BED, ONLY HAD 20% OF DINNER AND STARTED FEELING N/V , MEDICATED PER EMAR. JOHNSON INTACT AND PATENT/ INTACT= TOTAL OUTPUT 1200 YELLOW URINE NOTED. IV TO THE RIGHT WRIST INTACT AND PATENT INFUSING AT 100ML/HR OF NS. WILL ENDORSE TO INCOMING RN.
--- NOTE | 2019-05-06 19:05 | NUR ---
CARE ASSUMED FROM OUTGOING RN. PT RESTING COMFORTABLY IN BED. NO ACUTE DISTRESS NOTED. EVEN AND UNLABORED RESPIRATIONS ON RA. ON TELE# [address] 103. IV PATENT AND INTACT RUNNING FLUIDS PER EMAR. NO C/O PAIN AT THIS TIME. JOHNSON DRAINING YELLOW URINE VIA GRAVITY. BED IN LOWEST POSITION. SIDE RAILS UPX2. CALL LIGHT WITHIN REACH. WILL CONTINUE TO MONITOR.
[2019-05-06 19:36] VITALS: BP 122/78
--- NOTE | 2019-05-07 00:01 | NUR ---
PT RESTING COMFORTABLY IN BED WITH EYES CLOSED. NO ACUTE DISTRESS NOTED. EVEN AND UNLABORED RESPIRATIONS ON RA. ON TELE# [address] 90 WITH OCC PVCS. JOHNSON PATENT DRAINING VIA GRAVITY. BED IN LOWEST POSITION. SIDE RAILS UXP2. CALL LIGHT WITHIN REACH. WILL CONTINUE TO MONITOR.
[2019-05-07 05:57] VITALS: BP 154/73
--- NOTE | 2019-05-07 06:38 | NUR ---
PT SLEPT IN INTERVALS THROUGHOUT THE SHIFT. ALL NEEDS TENDED TO AND MET. REFUSED COLACE AT THIS TIME, STATES SOFT BM. C/O ABD PAIN AND INSOMNIA/ANXIETY MEDICATED PER EMAR. ON TELE# 29 READING /ST. JOHNSON PATENT DRAINING YELLOW URINE VIA GRAVITY. WILL ENDORSE TO ONCOMING SHIFT.
[2019-05-07 07:30] VITALS: BP 146/77
--- NOTE | 2019-05-07 07:41 | NUR ---
PT ENDORSE TO ME THIS MORNING, LAYING IN BED RESTING, AA/O X4 BREATHING EVEN AND UNLABORD ON RA, NO ACUTE RESP DISTRESS OR SOB NOTED. TELE 29 NSR NOTED 96-100 HR, DENIES ANY CP OR PRESSURE. JOHNSON INTACT AND PATENT/ DRAINING YELLOW URINE. GEN WEAKNESS/AMB WITH ASSIST AT TIMES/ KNOWS TO CALL. IV TO THE R WRIST INTACT AND PATENT INFUSING AT 100 ML/HR, NO REDNESS OR SWELLING NOTED. WILL CONTINUE TO MONITOR.
--- NOTE | 2019-05-07 08:41 | NUR ---
WILL ENDORSE CARE TO CRISTOFER WELSH.
--- NOTE | 2019-05-07 08:51 | NUR ---
RECEIVED HAND OFF REPORT FROM TAMMI C[place]. PATIENT SITTING UP IN BED IN GOOD SPIRITS, ALERT AND ORIENTED. PATIENT REPORTS THAT BAYRON MESSER SAW HIM AND TOLD HIM THAT HE WILL BE DISCHARGED TODAY. CALL LIGHT WITHIN REACH. COMPLAINING OF MODERATE PAIN AND REQUESTING PAIN MEDICATIONS. WILL CONTINUE TO MONITOR
[2019-05-07 12:16] VITALS: BP 122/59
[2019-05-07] MEDS ORDERED: FLO4 PO (12:53)
[2019-05-07] MEDS ORDERED: LEVAQUIN750 MG PO (12:55)
--- NOTE | 2019-05-07 13:05 | NUR ---
URINE CULTURE SENSITIVITY REPORT AVAILABLE FOR PATIENT. INFORMED AYDE. WILL PROCEED WITH DISCHARGE. JOHNSON CATH TO STAY IN DUE TO PATIENT NOT ABLE TO SEE HIS PRIMARY DOCTOR UNTIL SATURDAY AND FOLLOW UP WITH UROLOGY
--- NOTE | 2019-05-07 15:05 | NUR ---
DISCHARGE ORDER IN ON CHART. PATIENT READY FOR DISCHARGE. REVEIWED HOSPITAL STAY AND CLINICAL FINDINGS. EDUCATED PATIETN ABOUT JOHNSON CARE. SMALLER LEG BAG ATTACHED TO PATIENT JOHNSON PER HIS REQUEST. MADE AWARE OF FOLLOW UP APPOINTMENTS. NO FURTHER QUESTIONS FROM PATIENT. REMOVED IV FROM PATIENT, CATH INTACT. TELE 29 TAKE OFF PATIETNT AND LEFT WITH HSE ADVISOR. PATIENT ESCORTED OFF UNIT BY YO MEJIA WITH ALL BELONGINGS
== END 2019-05-07 15:01 | disposition home or self-care (01) | DRG 872 ==
LOC: ED 19:20 → DU 22:32
PROVIDERS: Internal Medicine; Specialist; ADMIT Internal Medicine
DX: A41.9 Sepsis, unspecified organism (principal); N39.0 Urinary tract infection, site not specified; B96.89 Other specified bacterial agents as the cause of diseases classified elsewhere; I10 Essential (primary) hypertension; E87.6 Hypokalemia; N40.1 Benign prostatic hyperplasia with lower urinary tract symptoms; R33.9 Retention of urine, unspecified; F32.9 Major depressive disorder, single episode, unspecified; F41.9 Anxiety disorder, unspecified; Z68.22 Body mass index [BMI] 22.0-22.9, adult; Z85.01 Personal history of malignant neoplasm of esophagus; Z92.3 Personal history of irradiation
CPT/HCPCS: 36600; 82962; 84439; 87804; G0378; J0696; J1450; J1885; J1956; J2270; J2405; J3475; J7030; J7060; J8597; Q0092

== ENCOUNTER 2020-02-14 19:42 | Emergency (ER) | payer OTHER ==
[~2020-02-14] VITALS: Ht 162.6 cm; Wt 51.9 kg
[~2020-02-14 19:42] MED LIST changes: +AMITRIPTYLINE H50 MG PO; +ENALAPRIL20 M1 PO; +FLO4 PO; +LEVAQUIN750 MG PO; +LORAZEPAM2 MG PO; +TRAZODONE100 MG PO
[2020-02-14 19:50] VITALS: Ht 162.6 cm; Wt 51.9 kg
[2020-02-14 20:50] VITALS: BP 142/90
== END 2020-02-14 20:50 | disposition home or self-care (01) ==
LOC: ED 19:42
DX: S01.511A Laceration without foreign body of lip, initial encounter (principal); E11.9 Type 2 diabetes mellitus without complications; E78.00 Pure hypercholesterolemia, unspecified; Z85.01 Personal history of malignant neoplasm of esophagus; Z88.8 Allergy status to other drugs, medicaments and biological substances; W17.89XA Other fall from one level to another, initial encounter; Y93.89 Activity, other specified; Y92.89 Other specified places as the place of occurrence of the external cause; Y99.8 Other external cause status; I10 Essential (primary) hypertension
CPT/HCPCS: J2001

== ENCOUNTER 2020-02-16 12:45 | Emergency (ER) | payer OTHER ==
[~2020-02-16] VITALS: Ht 162.6 cm; Wt 50.8 kg
[2020-02-16 12:57] VITALS: BP 124/76; Ht 162.6 cm; Wt 50.8 kg
== END 2020-02-16 13:15 | disposition home or self-care (01) ==
LOC: ED 12:45
DX: S01.511D Laceration without foreign body of lip, subsequent encounter (principal); I10 Essential (primary) hypertension; E11.9 Type 2 diabetes mellitus without complications; E78.00 Pure hypercholesterolemia, unspecified; Z85.01 Personal history of malignant neoplasm of esophagus; X58.XXXD Exposure to other specified factors, subsequent encounter

== ENCOUNTER 2020-02-20 14:28 | Emergency (ER) | payer OTHER ==
[~2020-02-20] VITALS: Ht 162.6 cm; Wt 50.3 kg
[2020-02-20 14:58] VITALS: BP 130/96; Ht 162.6 cm; Wt 50.3 kg
== END 2020-02-20 16:26 | disposition home or self-care (01) ==
LOC: ED 14:28
DX: S01.511D Laceration without foreign body of lip, subsequent encounter (principal); E78.00 Pure hypercholesterolemia, unspecified; I10 Essential (primary) hypertension; E11.9 Type 2 diabetes mellitus without complications; Z88.8 Allergy status to other drugs, medicaments and biological substances; X58.XXXD Exposure to other specified factors, subsequent encounter

== ENCOUNTER → 2020-06-08 | Emergency (ER) | payer OTHER, SELFPAY ==
[~2020-06-08] VITALS: Ht 162.6 cm; Wt 47.6 kg
[2020-06-08 15:17] VITALS: BP 155/100; Ht 162.6 cm; Wt 47.6 kg
[2020-06-08 18:14] LABS: BASOPHIL % 0.2 % (0.2-1.5); PLATELET COUNT 230 x10^3mcL (152-348)
[2020-06-08 18:19] LABS: CALCIUM 9.3 mg/dL (8.5-10.1); CARBON DIOXIDE 26.7 mmol/L (21-32); CHLORIDE SERUM 104 mmol/L (98-107); CREATININE SERUM 0.7 mg/dL (0.7-1.3); GFR1 > 60 mL/min; GLUCOSE SERUM 117 mg/dL (74-106); POTASSIUM SERUM 3.7 mmol/L (3.5-5.1); RED CELL DISTRIBUTION WIDTH 14.6 % (12.1-16.2); SODIUM SERUM 142 mmol/L (136-145)
[2020-06-08 18:23] LABS: ALKALINE PHOSPHATASE 94 U/L (46-116); ALT/SGPT 31 U/L (16-63); AST/SGOT 33 U/L (15-37); BILIRUBIN TOTAL 0.36 mg/dL (0.20-1.00); LACTIC DEHYDROGENASE (LDH) 230 U/L (100-190)
[2020-06-08 18:25] LABS: ALBUMIN 3.1 g/dL (3.4-5.0); TOTAL PROTEIN, SERUM 8.4 g/dL (6.4-8.2)
== END ==
LOC: ED 15:17
PROVIDERS: Emergency Medicine
DX: U07.1 COVID-19 (principal); I10 Essential (primary) hypertension; E11.9 Type 2 diabetes mellitus without complications; E78.00 Pure hypercholesterolemia, unspecified; Z98.890 Other specified postprocedural states; Z88.8 Allergy status to other drugs, medicaments and biological substances
CPT/HCPCS: 36600; 83880; 85378; 87804; J7030; U0003